=== PATIENT | male | born 1990 | race Caucasian/White ===

== ENCOUNTER 2023-08-10 12:51 | Outpatient (CLI) | payer OTHER | END 2023-08-10 23:59 | disposition home or self-care (01) | LOC: RAD 12:51 | PROVIDERS: ATTEND Chiropractor | DX: M13.80 Other specified arthritis, unspecified site (principal) | CPT/HCPCS: 73564; 73590 ==

== ENCOUNTER 2023-11-04 14:17 | Outpatient (CLI) | payer OTHER | END 2023-11-04 23:59 | disposition home or self-care (01) | LOC: RAD 14:17 | PROVIDERS: ATTEND Chiropractor | DX: M19.072 Primary osteoarthritis, left ankle and foot (principal) | CPT/HCPCS: 73600 ==